=== PATIENT | female | born 1945 | race Caucasian/White ===

== ENCOUNTER → 2016-11-21 | Outpatient (CLI) | payer OTHER, MEDICARE ==
[~2016-11-21] MED LIST: AMBIEN 5 MG TABL5 M1 PO; ASPIR 8181 MG PO; FLOVENT HFA 4444 MCG INH; MAXZIDE-25 MG1 EACH PO; OMEPRAZOLE20 M2 PO; VERAPAMIL E.R240 M1 PO
--- NOTE | ~2016-11-21 | O ---
[facility] [place] [address] OPERATIVE REPORT Name: LANDON KNIGHT Room #: [facility]..#: [id number] Admission: 11/21/16 Attend Phys: Ish Lopez MD Discharge: Date of : 43 Report #: [id number] THIS REPORT FOR: //name// CC: [facility] physician/PCP Ish Lopez PREOPERATIVE DIAGNOSIS: Left renal lithiasis. POSTOPERATIVE DIAGNOSIS: Left renal lithiasis. OPERATION PERFORMED: Shock wave lithotripsy of left renal stones. OPERATING SURGEON: Ish Lopez MD PREOPERATIVE INDICATIONS: The patient has a history of bilateral renal calculi. She has several residual stones in the left kidney and we have discussed shockwave treatment for these. PROCEDURE: After adequate IV sedation, she was gently placed in supine where the left kidney was visualized with fluoroscopy. The stones were seen. We focused the machine on these and delivered up to 4.0 PL energy with 4000 shocks. This was done without complication and the stones appeared to fracture. She tolerated it well and able to return to recovery in good shape following. By: [id number] Ish Lopez MD /nt
== END ==
LOC: LITH 08:40
DX: N20.0 Calculus of kidney (principal)